=== PATIENT | female | born 1985 | race Caucasian/White ===

== ENCOUNTER 2018-02-13 18:27 | Emergency (ER) | payer MEDICAID ==
[~2018-02-13] VITALS: Ht 160 cm; Wt 60.0 kg
[2018-02-13 18:33] VITALS: BP 110/52
== END 2018-02-13 19:30 | disposition left against medical advice (07) ==
LOC: ER 19:17
DX: M54.2 Cervicalgia (principal); Z53.21 Procedure and treatment not carried out due to patient leaving prior to being seen by health care provider